=== PATIENT | female | born 1985 | race Caucasian/White ===

== ENCOUNTER 2022-05-17 09:27 | Outpatient (CLI) | payer OTHER, SELFPAY ==
--- NOTE | 2022-05-17 09:42 | ECG_ITS ---
Measurements Intervals Allred Rate: 65 P: 0 SD: 125 QRS: 56 QRSD: 79 T: 32 QT: 416 QTc: 433 Interpretive Statements SINUS RHYTHM BASELINE ARTIFACT- II, III, AVR, AVF NORMAL ECG NO PREVIOUS ECG AVAILABLE FOR COMPARISON Electronically Signed On 05-17-2022 10:05:25 MEDICAL CLAIMS ANALYST by Navjot Ventura D.O.
== END 2022-05-17 09:28 | disposition home or self-care (01) ==
LOC: ANHCARD 09:28
PROVIDERS: PCP Family Medicine; Visit Provider Nurse Practitioner Family
DX: I10 Essential (primary) hypertension (principal)
CPT/HCPCS: 93005

== ENCOUNTER 2024-09-24 08:09 | Outpatient (CLI) | payer OTHER, SELFPAY ==
--- NOTE | ~2024-09-24 | US_ITS ---
US abdomen complete EXAMINATION: US Abdomen Complete INDICATION: Elevated liver function tests PROCEDURE: Realtime High Resolution abdomen ultrasound. COMPARISON: No prior studies for comparison FINDINGS: Gallbladder within normal limits. No gallstones, pericholecystic fluid, gallbladder wall t hickening or biliary dilatation. Common bile duct measures 3 mm. Liver echotexture is increased, consistent with fatty infiltration. Pancreas within normal limits. Pancreatic tail is obscured by bowel gas. Spleen is unremarkeable. Renal echotexture is within scooter l limits bilaterally without hydronephrosis, contour deforming mass or renal stone. Right kidney su ures 11.2 cm. Left kidney measures 9.7 cm. Visualized aspects of the aorta and IVC are within normal limits. Portal vein is patent. No sonograph ic Hearn's sign indicated by the technologist. IMPRESSION: 1: Fatty infiltration of the liver Reviewed, dictated and finalized at location A.
== END 2024-09-24 08:10 | disposition home or self-care (01) ==
PROVIDERS: PCP Family Medicine; Visit Provider Nurse Practitioner Adult Health
DX: R79.89 Other specified abnormal findings of blood chemistry (principal); K76.0 Fatty (change of) liver, not elsewhere classified
CPT/HCPCS: 76700